=== PATIENT | male | born 1955 | race Caucasian/White ===

== ENCOUNTER 2020-01-23 21:46 | Emergency (ER) | payer OTHER ==
[2020-01-23 22:55] LABS: #Eosinphils 0.2 thou/uL (0.0-0.7); #Monocytes 0.6 thou/uL (0.11-0.59); #Neutrophils 2.4 thou/uL (1.40-6.50); %Basophils 0.9 % (0.0-1.0); %Eosinophils 3.7 % (0.0-10.0); %Monocytes 13.9 % (0.0-10.0); %Neutrophils 57.5 % (42.0-75.0); Hemoglobin 12.1 g/dL (14.0-18.0); Mean Corpuscular HGB CONC 35.3 g/dL (32.0-36.0); Mean Corpuscular Hemoglobin 34.6 pg (27.0-31.0); Mean Corpuscular Volume 98.1 fL (78.0-98.0); Mean Platelet Volume 6.7 fL (7.4-10.4); Platelet Count 112 thou/uL (130-400); Platelet Morphology Comment Appears Decreased; RBC Distribution Width 14.1 % (11.5-14.5); White Blood Cell (WBC) Count 4.2 thou/uL (4.8-10.8)
[2020-01-23 22:58] LABS: ALT (SGPT) 28 U/L (8-55); AST (SGOT) 45 U/L (5-34); Albumin 3.2 g/dL (3.4-4.8); Alkaline Phosphatase 142 U/L (40-110); Anion Gap 10 mmol/L (10-20); BUN (Urea Nitrogen) 22 mg/dL (8.4-25.7); Bilirubin, Total 1.8 mg/dL (0.2-1.2); Calc. Creatinine Clearance 0 mL/min (70-130); Calcium 9.2 mg/dL (7.8-10.44); Carbon Dioxide 30 mmol/L (23-31); Chloride 108 mmol/L (98-107); Estimated GFR-MDRD 80; Globulin 3.4 g/dL (2.4-3.5); Glucose 146 mg/dL (80-115); Potassium 3.6 mmol/L (3.5-5.1); Protein, Total 6.6 g/dL (5.8-8.1); Sodium 144 mmol/L (136-145)
[2020-01-23 23:15] LABS: Bilirubin Negative (Negative); Blood, Urine Negative (Negative); Clarity Clear (Clear); Glucose, Urine (Dipstick) Normal (Negative); Leukocyte Negative Leu/uL (Negative); Nitrite Negative (Negative); Protein, Urine (Dipstick) Negative (Neg-Trace)
[2020-01-23 23:27] LABS: Amphetamine Not Detected (NotDetected); Barbiturates Screen Not Detected (NotDetected); Benzodiazepine Screen Not Detected (NotDetected); Cocaine Metabolite Screen Not Detected (NotDetected); Medtox Control Line Valid? VALID (VALID); Medtox Reader # READER 1; Methadone Not Detected (NotDetected); Methamphetamine Not Detected (NotDetected); Opiate Screen Not Detected (NotDetected); Oxycodone Screen Not Detected (NotDetected); Phencyclidine (PCP) Not Detected (NotDetected); THC/Cannabinoid Screen Not Detected (NotDetected); Tricyclic Screen Not Detected (NotDetected)
[2020-01-23 23:42] LABS: CKMB 8.2 ng/mL (0-6.6)
--- NOTE | 2020-01-27 11:02 | EKG ---
Test Reason : Blood Pressure : / mmHG Vent. Rate : 076 BPM Atrial Rate : 076 BPM P-R Int : 204 ms QRS Dur : 088 ms QT Int : 442 ms P-R-T Axes : 061 037 069 degrees QTc Int : 497 ms Normal sinus rhythm Prolonged QT Abnormal ECG Confirmed by CHAVA SRIVASTAVA DO ([id number]), graphic editor BRUCE JACKSON ([id number] on 01/27/2020 11:01:50 AM Referred By: Confirmed By:CHAVA SRIVASTAVA DO
== END 2020-01-24 04:29 | disposition short-term general hospital (02) ==
LOC: EDBD 21:46 → ERS 21:46
DX: K70.30 Alcoholic cirrhosis of liver without ascites (principal); K72.90 Hepatic failure, unspecified without coma; I10 Essential (primary) hypertension; D64.9 Anemia, unspecified; R79.89 Other specified abnormal findings of blood chemistry; Z79.899 Other long term (current) drug therapy
CPT/HCPCS: 36415; 51701; 80053; 80306; 81003; 82140; 82553; 84484; 85025; 93005

== ENCOUNTER 2020-03-07 14:17 | Inpatient (IN) | payer OTHER ==
--- NOTE | 2020-03-07 16:12 | RAD ---
XR Chest 1 View Portable HISTORY: Altered mental status and fall COMPARISON: 02/26/2020 FINDINGS: The heart size is stable. The lungs are without focal areas of consolidation, pneumothorax or pleural effusions. IMPRESSION: No radiographic evidence of acute cardiopulmonary process.
--- NOTE | 2020-03-07 16:14 | PDOC.FPRHP ---
- History of Present Illness Chief Complaint: AMS History of Present Illness: Pt is a 64yo M with a PMH of cirrhosis of liver, HTN, esophageal varcies, iron deficiency anemia, ascites, toxic encephalopathy, obesity, portal vein thrombosis, PVD, who present with AMS. Patient is an inmate who was discharged from [facility] in [place] yesterday. This morning, he had a witnessed fall and was subsequently taken to the [place] ED. There, his BP were labile and as low as 75/37. Receieved dopamine and 3L of fluids. Ammonia was found to be 110. Patient has been noncompliant with his medications. History was limited secondary to patient being altered. ED Course: Patient received Dopamine at the [place] ED, 3L of fluid Received lactulose in the ED here. CT head neg, CXR neg - History PMHx: cirrhosis of liver, HTN, esophageal varcies, iron deficiency anemia, ascites, toxic encephalopathy, obesity, portal vein thrombosis, PVD PSHx: FHx: Social: - Vital signs BP: 144/85 HR: 74 RR: 14 Tmax: 98.3 Pox: 97% on RA Wt: 93.7 kg FMR H&P: Results - EKG Interpretation EKG: EKG demonstrates normal sinus rhythm with rate 70, NE of 200, QRS duration 90, QTc of 41, QRS axis of 27 degrees with prolonged QT, normal T waves normal axis normal ST segments. Nonspecific EKG. FMR H&P: A/P - Plan AMS likely 2/2 SBP -hx of cirrhosis of the liver -Protonix gtt -Lactulose -GI consulted, appreciate the recs HTN Iron Deficiency Anemia PVD IVF: DVT Prophylaxis: GI Prophylaxis: Protonix gtt Diet: Code: Dispo: admit to inpatient ICU, anticipated LOS >48hr FMR H&P: Upper Level - Plan Date/Time: 03/07/20 1613 I, [], have evaluated this patient and agree with findings/plan as outlined by international flight attendant resident. Pertinent changes/additions are listed here.
--- NOTE | 2020-03-07 16:16 | CT ---
CT Brain WO Con History: Altered metal status Comparison: CT brain same day Findings: The left lateral ventricular colloid cyst near the foramen of Adamson is unchanged. No hydro cephalus. Ventricular size is similar to the comparison exams. No midline shift. No mass effect. Calvarium is intact. Moderate chronic microvascular ischemic changes. Paranasal sinuses are clear. Impression: Unchanged exam. No acute intracranial abnormality.
[2020-03-07] MEDS ORDERED: Ondansetron ODT 4 MG TAB PO PRN (16:44)
[2020-03-07] MEDS ORDERED: cefTRIAXone\\ROCEPHIN 2 GM in Sodium Chloride 0.9% 100 ML IVPB SCH (17:00)
[2020-03-07 18:06] LABS: SARS-CoV-2 NAA Rapid Test Not Detected (NotDetected)
[2020-03-07] MEDS ORDERED: HYDROcodone/Acetaminophen 5/325 mg Tablet PO PRN ×2 (20:11)
[2020-03-07] MEDS ORDERED: Ondansetron ODT 4 MG TAB SL PRN (20:11)
[2020-03-07] MEDS ORDERED: Acetaminophen 325 MG TAB PO PRN (20:11)
[2020-03-07] MEDS ORDERED: Sodium Chloride 0.9% 1,000 ML IV SCH (20:11)
[2020-03-07] MEDS ORDERED: Ondansetron PF 4 MG/2 ML Vial IVP PRN (20:11)
[2020-03-07 23:45] VITALS: BMI 32.1
[2020-03-08] MEDS ORDERED: Acetaminophen 325 MG TAB PO PRN (01:19)
[2020-03-08] MEDS ORDERED: cloNIDine 0.1 MG TAB PO PRN (01:19)
[2020-03-08] MEDS ORDERED: hydrALAZINE 20 MG/ML VIAL SLOW IVP PRN (01:19)
[2020-03-08] MEDS ORDERED: Ondansetron PF 4 MG/2 ML Vial IVP PRN (01:19)
[2020-03-08] MEDS ORDERED: HYDROcodone/Acetaminophen 5/325 mg Tablet PO PRN (01:19)
[2020-03-08] MEDS ORDERED: Guaifenesin DM 100-10/5 ML UDCUP PO PRN (01:19)
[2020-03-08] MEDS ORDERED: Promethazine HCl 12.5 MG in Sodium Chloride 0.9% 50 ML IVPB PRN (01:19)
[2020-03-08] MEDS ORDERED: Labetalol HCl 100 MG/20 ML VIAL SLOW IVP PRN (01:19)
--- NOTE | 2020-03-08 01:22 | PDOC.HHP ---
Hospitalist HPI - History of Present Illness altered mental status History of Present Illness: Patient is a 64 year old male with PMH cirrhosis, HTN, esophageal varices, VIELKA, noncompliance with lactulose presents to ED from [facility] for altered mental status. He is noncompliant with lactuloseoften and is frequently in hospital for ammonia build up. He just got back from [facility] last night, had witnessed fall this AM, no LOC, lied on back, unknown if head trauma, in ED found to be altered and in hepatic encephalopathy, no beds at [facility], patient to be admitted for hepatic encephalopathy, ammonia 110. patient unable to supplement history, is asleep and somnolent but rousable to voice and stimuli, goes right back to sleep, snoring, protecting airway, denies pain, no distress. He was given IVF and ativan before arrival. baseline patient is AOx3. He is from [facility] of [facility].he needed dopamine before arrival, now not needing any more with stable vitals. Hospitalist ROS - Review of Systems ROS unobtainable: due to mental status - Medication Medications: Active Medications Generic Name Dose Route Start Last Admin Trade Name Freq PRN Reason Stop Dose Admin Sodium Chloride 1,000 mls @ 100 mls/hr 03/07/20 20:11 03/07/20 21:49 Normal Saline 0.9% IV 03/08/20 07:15 1,000 mls .Q10H [facility] Hospitalist History - Past Medical History Other Medical History: cirrhosis, HTN, esophageal varices, VIELKA, noncompliance with lactulose - Past Surgical History Other Surgical History: unknown, unable to assess - Family History Other Family History: unknown, unable to assess - Social History Other Social History: unknown, unable to assess. incarcerated - Exam General - other findings: altered mental status, lethargic, rouses to voice erwin painful stimuli Eye: PERRL, anicteric sclera ENT: normocephalic atraumatic, no oropharyngeal lesions, moist mucosa Neck: supple, symmetric, no JVD, no thyromegaly, no lymphadenopathy, no carotid bruit Heart: RRR, no murmur, no gallops, no rubs, normal peripheral pulses Respiratory: CTAB, no wheezes, no rales, no ronchi, normal chest expansion, no tachypnea, normal percussion Gastrointestinal: soft, non-tender, non-distended, normal bowel sounds, no palpable masses, no hepatomegaly, no splenomegaly, no bruit Extremities: no cyanosis, no clubbing, no edema Skin: normal turgor, no lesions, no rashes Neurological - other findings: altered mental status, arouses to painful stimuli Musculoskeletal: normal tone, normal strength, no muscle wasting Psychiatric: somnolent, lethargic Hospitalist Results - Labs Result Diagrams: 03/08/20 01:29 03/08/20 01:29 Lab results: reviewed labs and available documents sent with patient Hospitalist H&P A/P - Plan Plan: Patient is a 64 year old male with PMH cirrhosis, HTN, esophageal varices, VIELKA, noncompliance with lactulose presents to ED from [facility] for altered mental status. # history of cirrhosis w/ esophageal varices # hepatic encephalopathy - patient with history of cirrhosis and noncompliance with lactulose presents from [facility] for altered mental status, fall and found to have ammonia level 110 - admit to floor - lactulose 20g QID - continue home medications - furosemide, lactulose, ppi, spironolactone, rifaximin - given cirrhosis and AMS, will do empiric SBP ppx cephalosporin and order US paracentesis w/ studies to rule out SBP as cause of decompensation. cultures of blood etc ordered, follow these up as well. # HTN - PRN medications available # VIELKA - trend CBC, resume home meds once available # GI/DVT ppx full code
[2020-03-08 01:40] LABS: #Eosinphils 0.2 thou/uL (0.0-0.7); #Lymphocytes 0.9 thou/uL (1.20-3.40); #Monocytes 0.5 thou/uL (0.11-0.59); #Neutrophils 1.7 thou/uL (1.40-6.50); %Basophils 0.8 % (0.0-1.0); %Eosinophils 7.1 % (0.0-10.0); %Lymphocytes 27.6 % (21.0-51.0); %Monocytes 13.6 % (0.0-10.0); %Neutrophils 50.9 % (42.0-75.0); Hemoglobin 11.9 g/dL (14.0-18.0); Mean Corpuscular HGB CONC 33.4 g/dL (32.0-36.0); Mean Corpuscular Volume 98.8 fL (78.0-98.0); Platelet Count 94 thou/uL (130-400); RBC Distribution Width 14.1 % (11.5-14.5); Red Blood Cell (RBC) Count 3.59 mill/uL (4.70-6.10); White Blood Cell (WBC) Count 3.4 thou/uL (4.8-10.8)
[2020-03-08 01:42] LABS: INR-International Normal Ratio 1.2
[2020-03-08 01:51] LABS: Lactic Acid 1.2 mmol/L (0.5-2.2)
[2020-03-08 01:57] LABS: ALT (SGPT) 29 U/L (8-55); AST (SGOT) 45 U/L (5-34); Alkaline Phosphatase 142 U/L (40-110); Anion Gap 13 mmol/L (10-20); BUN (Urea Nitrogen) 12 mg/dL (8.4-25.7); Calc. Creatinine Clearance 133 mL/min (70-130); Calcium 8.7 mg/dL (7.8-10.44); Carbon Dioxide 22 mmol/L (23-31); Chloride 109 mmol/L (98-107); Estimated GFR-MDRD Greater than 90; Glucose 114 mg/dL (80-115); Magnesium 1.9 mg/dL (1.6-2.6); Phosphorus 3.2 mg/dL (2.3-4.7); Potassium 3.9 mmol/L (3.5-5.1); Protein, Total 6.5 g/dL (5.8-8.1); Sodium 140 mmol/L (136-145)
[2020-03-08] MEDS ORDERED: cefTRIAXone\\ROCEPHIN 2 GM in Sodium Chloride 0.9% 100 ML IVPB SCH (02:00)
[2020-03-08 02:01] LABS: Troponin I 0.026 ng/mL (< 0.028)
[2020-03-08] MEDS: cefTRIAXone\\ROCEPHIN 2 GM in Sodium Chloride 0.9% 100 ML IVPB SCH (02:28)
--- NOTE | 2020-03-08 08:25 | ULT ---
LIMITED ABDOMINAL ULTRASOUND: INDICATION: Evaluate for ascites and altered mental status. COMPARISON: Prior study dated 02/13/2020. FINDINGS: No significant amount of intraabdominal fluid is evident. No fluid collection is present that is lar ge enough for a diagnostic thoracentesis. There is a small right pleural effusion incidentally noted . IMPRESSION: No ascites present. POS: BH
[2020-03-08] MEDS ORDERED: Prevnar 13-Val Conj/PF 0.5 ML SYRINGE IM ONE (09:00)
[2020-03-08] MEDS: Rifaximin 550 MG TAB PO SCH ×2 (09:05→21:25)
[2020-03-08] MEDS: Furosemide 20 MG TAB PO SCH ×2 (09:06→13:08)
[2020-03-08] MEDS: Spironolactone 25 MG TAB PO SCH (09:06)
[2020-03-08 10:28] LABS: Bacteria/HPF None Seen HPF (None Seen); Bilirubin Negative (Negative); Blood, Urine Negative (Negative); Clarity Clear (Clear); Glucose, Urine (Dipstick) Normal (Negative); Ketone, Urine Negative (Negative); Leukocyte Negative Leu/uL (Negative); Nitrite Negative (Negative); Protein, Urine (Dipstick) Negative (Neg-Trace); RBC/HPF 0-3 HPF (0-3); Specific Gravity, Urine 1.018 (1.002-1.036); Squamous Epithelial 0-3 HPF (0-3); WBC/HPF 0-3 HPF (0-3); pH, Urine 6.5 (5.0-9.0)
[2020-03-08 10:30] LABS: Urine Culture Reflex No No
[2020-03-09] MEDS ORDERED: cefTRIAXone\\ROCEPHIN 2 GM in Sodium Chloride 0.9% 100 ML IVPB SCH (02:00)
[2020-03-09] MEDS: cefTRIAXone\\ROCEPHIN 2 GM in Sodium Chloride 0.9% 100 ML IVPB SCH (03:57)
[2020-03-09] MEDS: Furosemide 20 MG TAB PO SCH (09:02)
[2020-03-09] MEDS: Spironolactone 25 MG TAB PO SCH (09:02)
[2020-03-09] MEDS: Rifaximin 550 MG TAB PO SCH (09:02)
[2020-03-09 12:10] VITALS: TEMP 97.7
[2020-03-09 15:31] VITALS: BP 142/87
--- NOTE | 2020-03-09 18:50 | DIS ---
DATE OF ADMISSION: 03/07/2020 DATE OF DISCHARGE: 03/09/2020 HOSPITAL COURSE: Mr. Marks is a 64-year-old male with a medical history of cirrhosis, esophageal varices, and medication nonadherence, who [facility]. He was diagnosed with overt hepatic encephalopathy. His ammonia level on presentation was 110. The patient was started on lactulose and had multiple bowel movements, after which he promptly improved. On the day of discharge, he was hemodynamically stable. Alert and oriented x3. PHYSICAL EXAMINATION: VITAL SIGNS: Blood pressure 142/87, pulse 89, respiratory rate 16, oxygen saturation 96% on room air, and temperature 97.7 Fahrenheit. GENERAL: Lying comfortably in bed, awake and alert. HEENT: Eye exam, PERRL. Anicteric sclerae. Normocephalic, atraumatic. Moist mucosa. NECK: No JVD. HEART: Regular rate and rhythm. No murmurs, gallops, or rubs. RESPIRATORY: Clear to auscultation bilaterally. No wheezing, rales, or rhonchi. GI: Soft, nontender, nondistended. Normal bowel sounds. EXTREMITIES: No cyanosis, clubbing, or edema. NEUROLOGIC: Cranial nerves 2 through 12 grossly intact. MEDICATION LIST: Concerning the patient has been nonadherent to his medications , all of the medications are considered new. 1. Lasix 40 mg p.o. daily. 2. lactulose q.i.d., titrate to 3 to 4 bowel movements per day. 3. Pantoprazole 40 mg daily. 4. Spironolactone 100 mg q.a.m. with breakfast. 5. Propranolol 10 mg oral b.i.d., stop if heart rate is lower than 55. Job ID: [id number] [facility]
[2020-03-10] MEDS ORDERED: Spironolactone 100 MG TAB PO SCH (08:00)
[2020-03-10] MEDS ORDERED: Furosemide 20 MG TAB PO SCH (09:00)
== END 2020-03-09 16:48 | DRG 441 ==
LOC: ERS 14:17 → 2NO 16:14 → EEVIPCON 16:14 → 2NO 19:15
PROVIDERS: ADMIT Internal Medicine; ATTEND Internal Medicine
PROC: 3E0234Z Introduction of Serum, Toxoid and Vaccine into Muscle, Percutaneous Approach (ICD-10-PCS; principal; 2020-03-08)
DX: K72.90 Hepatic failure, unspecified without coma (principal); R40.2342 Coma scale, best motor response, flexion withdrawal, at arrival to emergency department; I85.10 Secondary esophageal varices without bleeding; K74.60 Unspecified cirrhosis of liver; Z20.828 Contact with and (suspected) exposure to other viral communicable diseases; R40.2132 Coma scale, eyes open, to sound, at arrival to emergency department; R40.2232 Coma scale, best verbal response, inappropriate words, at arrival to emergency department; I73.9 Peripheral vascular disease, unspecified; E66.9 Obesity, unspecified; I10 Essential (primary) hypertension; D50.9 Iron deficiency anemia, unspecified; Z86.718 Personal history of other venous thrombosis and embolism; Z91.14 Patient's other noncompliance with medication regimen; Z68.31 Body mass index [BMI] 31.0-31.9, adult; Z79.899 Other long term (current) drug therapy; Z23 Encounter for immunization
CPT/HCPCS: 36415; 51701; 70450; 71045; 76705; 80048; 80076; 81001; 82140; 83605; 83735; 84100; 84484; 85025; 85610; 87040; 90471; 90670; G0009; J0696; J3490; U0002